=== PATIENT | male | born 1990 | race Two or more races ===

== ENCOUNTER 2016-12-28 09:33 | Emergency (ER) | payer SELFPAY ==
[~2016-12-28] VITALS: Ht 182.9 cm; Wt 70.2 kg
[2016-12-28] MEDS ORDERED: SODIUM CHLORIDE FLUSH 10ML SYR IVF ONE (10:30)
[2016-12-28] MEDS ORDERED: SODIUM CHLORIDE 0.9% 1,000ML IVBOLUS ONE (10:30)
[2016-12-28] MEDS ORDERED: ONDANSETRON 2MG/ML, 2ML IVPush ONE (10:30)
[2016-12-28 10:48] LABS: ASPARTATE AMINO TRANSFERASE 20 U/L (15-37); BLOOD UREA NITROGEN 25 mg/dL (7-18)
[2016-12-28 11:41] VITALS: BP 99/61
== END 2016-12-28 11:43 | disposition home or self-care (01) ==
LOC: ED 10:24
DX: R11.2 Nausea with vomiting, unspecified (principal)
CPT/HCPCS: 36415; 80053; 83690; 85025; 96360; 99284; J7030

== ENCOUNTER 2018-06-14 16:27 | Emergency (ER) | payer SELFPAY ==
[~2018-06-14] VITALS: Ht 180.3 cm; Wt 78.7 kg
[2018-06-14 16:36] VITALS: BP 131/69
[2018-06-14] MEDS ORDERED: HYDROcodone/APAP 5/325 TABLET ONE (17:27)
[2018-06-14] MEDS ORDERED: HYDROcodone/APAP 5/325 TABLET PO ONE (18:00)
== END 2018-06-14 18:25 | disposition home or self-care (01) ==
LOC: ED 18:19
DX: S92.414A Nondisplaced fracture of proximal phalanx of right great toe, initial encounter for closed fracture (principal); X58.XXXA Exposure to other specified factors, initial encounter; Y93.89 Activity, other specified; Y92.89 Other specified places as the place of occurrence of the external cause; Y99.8 Other external cause status
CPT/HCPCS: 99284

== ENCOUNTER 2019-01-22 | Emergency (ER) | payer SELFPAY ==
[~2019-01-22] VITALS: Ht 180.3 cm; Wt 82.1 kg
[2019-01-22 00:02] VITALS: BP 131/84
--- NOTE | 2019-01-22 00:28 | NUR ---
Pa to pit pt. [id number].
[2019-01-22] MEDS ORDERED: HYDROcodone/APAP 5/325 TABLET PO ONE ×2 (01:00→01:30)
[2019-01-22] MEDS ORDERED: HYDROcodone/APAP 5/325 TABLET ONE (01:53)
== END 2019-01-22 02:12 | disposition home or self-care (01) ==
LOC: ED 02:10
DX: K04.7 Periapical abscess without sinus (principal)
CPT/HCPCS: 99283